=== PATIENT | female | born 1985 | race Hispanic/Latino ===

== ENCOUNTER 2018-03-06 19:54 | Emergency (ER) | payer MEDICAID, SELFPAY ==
[2018-03-06 20:15] LABS: Bilirubin Negative (Negative); Blood, Urine Negative (Negative); Clarity Hazy (Clear); Glucose, Urine (Dipstick) Negative (Negative); Leukocyte Small (Negative); Nitrite Negative (Negative); Protein, Urine (Dipstick) Negative (Neg-Trace); Specific Gravity, Urine 1.025 (1.005-1.030)
[2018-03-06 20:17] LABS: Bacteria/HPF 2+ HPF (None Seen); RBC/HPF None Seen HPF (0-3)
[2018-03-06] MEDS ORDERED: Lidocaine 1% MPF 2 ML VIAL ONE (20:47)
[2018-03-06] MEDS ORDERED: Azithromycin 250 MG TAB ONE (20:47)
[2018-03-06] MEDS ORDERED: cefTRIAXone\\ROCEPHIN 1 GM VIAL ONE (20:47)
[2018-03-08 16:39] LABS: Chlamydia by PCR DETECTED (NotDetected); GC by PCR DETECTED (NotDetected)
== END 2018-03-06 21:16 | disposition home or self-care (01) ==
LOC: SCSER 19:54
DX: N30.00 Acute cystitis without hematuria (principal); N72 Inflammatory disease of cervix uteri
CPT/HCPCS: 81003; 81015; 87480; 87491; 87510; 87591; 87660; 96372; J0696